=== PATIENT | male | born 1950 | race Caucasian/White ===

== ENCOUNTER → 2018-09-25 10:46 | Emergency (ER) | payer MEDICARE ==
[2018-09-25 12:20] LABS: ABS Lymphocytes 0.9 10^3/ul (1.0-4.8); ABS Monocytes 0.7 10^3/ul (0-0.8); ABS Neutrophils 4.6 10^3/ul (1.5-7.7); Eosinophil % 0.2 %; Hematocrit 46 % (42-52); Hemoglobin 15.6 g/dL (14.0-18.0); Lymphocyte % 14.5 %; Mean Corpuscular HGB Conc 34 g/dL (31-36); Mean Corpuscular Hemoglobin 32 pg (27-31); Mean Corpuscular Volume 94 fL (80-94); Nucleated Red Blood Cells % 0.1; Platelet Count 203 10^3/uL (150-450); Red Cell Distribution Width 14 % (10-15); White Blood Count 6.2 10^3/uL (3.5-10.8)
--- NOTE | 2018-09-25 12:24 | ED ---
Abdominal Pain/Male - HPI Summary HPI Summary: Pt is a 63 y/o M presenting to the ED with a chief complaint of abd pain onset initially at 2200 on 09/24/18 on the R side that lasted until 0500 this morning. He experienced some nausea that has since resolved, and the pain was causing him to feel restless. He denies diarrhea or fever. - History of Current Complaint Chief Complaint: EDAbdPain Stated Complaint: LOWER RT QUADRANT PAIN PER PT Time Seen by Provider: 09/25/18 12:10 Hx Obtained From: Patient Onset/Duration: Sudden Onset, Lasting Hours, Still Present Timing: Constant, Lasting Hours Severity Initially: Moderate Severity Currently: Mild Pain Intensity: 3 Pain Scale Used: 0-10 Numeric Location: Discrete At: RUQ, Discrete At: RLQ Radiates: No Aggravating Factor(s): Nothing Alleviating Factor(s): Spontaneous Resolution Associated Signs And Symptoms: Positive: Nausea. Negative: Fever, Diarrhea - Allergies/Home Medications Allergies/Adverse Reactions: Allergies Allergy/AdvReac Type Severity Reaction Status Date / Time No Known Allergies Allergy Verified 09/25/18 10:55 Home Medications: Home Medications Citalopram TAB* [CeleXA TAB*] 20 mg PO DAILY 09/25/18 [History Confirmed ] Cyanocobalamin INJ * [Vitamin B12 INJ *] 1,000 mcg IM MONTHLY 09/25/18 [History Confirmed 09/25/18] FLUoxetine CAP* [PROzac CAP*] 40 mg PO DAILY 09/25/18 [History Confirmed ] Gabapentin CAP(*) [Neurontin 100 mg CAP(*)] 100 - 300 mg PO QPM 09/25/18 [ History Confirmed 09/25/18] Metoprolol Tartrate TAB* [Lopressor TAB*] 12.5 mg PO DAILY 09/25/18 [History Confirmed 09/25/18] Ramipril CAP* [Altace CAP*] 10 mg PO DAILY 09/25/18 [History Confirmed 09/25/18] Rosuvastatin (NF) [Crestor (NF)] 40 mg PO DAILY 09/25/18 [History Confirmed ] Warfarin TAB(*) [Coumadin TAB(*)] 5 - 10 mg PO DAILY 09/25/18 [History Confirmed 09/25/18] PMH/Surg Hx/FS Hx/Imm Hx Previously Healthy: Yes Endocrine/Hematology History: Reports: Hx Anticoagulant Therapy Denies: Hx Diabetes, Hx Thyroid Disease Cardiovascular History: Reports: Hx Hypertension - CONTROLLED WITH DAILY MEDS Denies: Hx Congestive Heart Failure, Hx Deep Vein Thrombosis, Hx Myocardial Infarction, Hx Pacemaker/ICD Respiratory History: Reports: Hx Chronic Bronchitis, Hx Sleep Apnea - started CPAP 12/2012 Denies: Hx Asthma, Hx Chronic Obstructive Pulmonary Disease (COPD), Hx Lung Cancer, Hx Pneumonia, Hx Pulmonary Embolism GI History: Denies: Hx Gall Bladder Disease, Hx Gastrointestinal Bleed, Hx Ulcer, Hx Urosepsis History: Denies: Hx Kidney Stones, Hx Renal Disease Sensory History: Denies: Hx Contacts or Glasses, Hx Hearing Aid Opthamlomology History: Denies: Hx Contacts or Glasses Neurological History: Denies: Hx Dementia, Hx Migraine, Hx Seizures, Hx Transient Ischemic Attacks (TIA) Psychiatric History: Reports: Hx Depression - HAS TAKEN MEDS IN PAST, NONE CURRENTLY Denies: Hx Anxiety, Hx Schizophrenia, Hx Bipolar Disorder - Surgical History Surgery Procedure, Year, and Place: 1977 LEFT WRIST TENDON REPAIR [place]. 2005 DETACHED RETINA RT EYE [facility]. 2007 RT EYE LES IMPLANT [place]. 2011-R knee arthroscopy Hx Anesthesia Reactions: Yes - VERY NAUSEATED 4 DAYS 1977 Infectious Disease History: No Infectious Disease History: Denies: Traveled Outside the [place] in Last 30 Days - Family History Known Family History: Negative: Renal Disease, Blood Disorder - Social History Alcohol Use: Daily Alcohol Amount: 1/2 bottle wine Hx Substance Use: Yes Substance Use Type: Reports: Marijuana Hx Tobacco Use: No Smoking Status (MU): Never Smoked Tobacco Review of Systems Negative: Fever Positive: Abdominal Pain, Nausea. Negative: Diarrhea All Other Systems Reviewed And Are Negative: Yes Physical Exam - Summary Physical Exam Summary: Appearance: Well-appearing, Well-nourished, lying in bed comfortably Skin: Warm, dry, no obvious rash Eyes: sclera anicteric, no conjunctival pallor ENT: mucous membranes moist, pharynx appears normal Neck: Supple, nontender Respiratory: Clear to auscultation, no signs of respiratory distress Cardiovascular: Normal S1, S2. No murmurs. Normal distal pulses in tibial and radial bilaterally. Abdomen: Soft, nontender, normal active bowel sounds present Musculoskeletal: Normal, Strength/ROM Intact Neurological: A&Ox3, awake and alert, mentation is normal, speech is fluent and appropriate Psychiatric: affect is normal, does not appear anxious or depressed Triage Information Reviewed: Yes Vital Signs On Initial Exam: Initial Vitals Temp Pulse Resp BP Pulse Ox 97.7 F 76 14 162/88 96 09/25/18 10:53 09/25/18 10:53 09/25/18 10:53 09/25/18 10:53 09/25/18 10:53 Vital Signs Reviewed: Yes Diagnostics - Vital Signs Vital Signs Temp Pulse Resp BP Pulse Ox 09/25/18 10:53 97.7 F 76 14 162/88 96 - Laboratory Lab Results: Lab Results 09/25/18 Range/Units 11:56 WBC 6.2 (3.5-10.8) 10^3/uL RBC 4.90 (4.18-5.48) 10^6 /uL Hgb 15.6 (14.0-18.0) g/dL Hct 46 (42-52) % MCV 94 (80-94) fL MCH 32 H (27-31) pg MCHC 34 (31-36) g/dL RDW 14 (10-15) % Plt Count 203 (150-450) 10^3/uL MPV 7.0 L (7.4-10.4) fL Neut % (Auto) 74.1 % Lymph % (Auto) 14.5 % [place] % (Auto) 10.8 % Eos % (Auto) 0.2 % Baso % (Auto) 0.4 % Absolute Neuts (auto) 4.6 (1.5-7.7) 10^3/ul Absolute Lymphs (auto) 0.9 L (1.0-4.8) 10^3/ul Absolute Monos (auto) 0.7 (0-0.8) 10^3/ul Absolute Eos (auto) 0.0 (0-0.6) 10^3/ul Absolute Basos (auto) 0.0 (0-0.2) 10^3/ul Absolute Nucleated RBC 0.0 10^3/ul Nucleated RBC % 0.1 Result Diagrams: 09/25/18 11:56 09/25/18 11:56 Lab Statement: Any lab studies that have been ordered have been reviewed, and results considered in the medical decision making process. - CT CT abd/pelv CT Interpretation Completed By: Radiologist Summary of CT Findings: 1. NO EVIDENCE FOR ACUTE FINDING. 2. HEPATIC STEATOSIS. 3. ENLARGED PROSTATE GLAND AND BLADDER WALL THICKENING LIKELY DUE TO OUTLET OBSTRUCTION. ED physician has reviewed this report. - EKG 1155 Cardiac Rate: Bradycardia - 58bpm EKG Rhythm: Sinus Bradycardia ST Segment: Normal Ectopy: None Summary of EKG Findings: EKG at 1155 shows sinus bradycardia at 58 BPM, P waves , QRS complex, and T waves are within normal limits, T waves and intervals are normal, no ischemic changes. This is a normal EKG. Abdominal Pain Male Course/Dx - Course Course Of Treatment: Pt is a 63 y/o M presenting to the ED with a chief complaint of abd pain onset initially at 2200 on 09/24/18 on the R side that lasted until 0500 this morning. He experienced some nausea that has since resolved, and the pain was causing him to feel restless. He denies diarrhea or fever. Pt's physical exam is normal. CT abd/pelv shows: 1. NO EVIDENCE FOR ACUTE FINDING. 2. HEPATIC STEATOSIS. 3. ENLARGED PROSTATE GLAND AND BLADDER WALL THICKENING LIKELY DUE TO OUTLET OBSTRUCTION. EKG at 1155 shows sinus bradycardia at 58 BPM, P waves, QRS complex, and T waves are within normal limits, T waves and intervals are normal, no ischemic changes. This is a normal EKG. Pt will be d/c'ed with a dx of kidney stones. He is stable and agreeable with this plan. - Diagnoses Provider Diagnoses: Kidney stones Discharge - Sign-Out/Discharge Documenting (check all that apply): Patient Departure Patient Received Moderate/Deep Sedation with Procedure: No - Discharge Plan Condition: Good Disposition: HOME Patient Education Materials: Kidney Stones (ED), Acute Abdominal Pain (ED) Referrals: Keegan Diamond NP [Primary Care Provider] - - Billing Disposition and Condition Condition: GOOD Disposition: Home - Attestation Statements Document Initiated by Scribe: Yes Documenting Scribe: Savana Iqbal Provider For Whom [facility]aya is Documenting (Include Credential): Kris Pope MD. Scribe Attestation: Savana Chauhan, vandaed for Kris Pope MD. on 09/26/18 at 0949. Scribe Documentation Reviewed: Yes Provider Attestation: The documentation as recorded by the scribe, Savana Iqbal accurately reflects the service I personally performed and the decisions made by me, Kris Pope MD. Status of [facility]aya Document: Viewed
[2018-09-25 12:34] LABS: Urine Appearance Clear; Urine Bilirubin Negative (Negative); Urine Blood Negative (Negative); Urine Color Amber; Urine Glucose Negative (Negative); Urine Ketones Trace (Negative); Urine Nitrite Negative (Negative); Urine Protein Negative (Negative); Urine Specific Gravity 1.025 (1.010-1.030); Urine Urobilinogen Negative (Negative)
[2018-09-25 12:36] LABS: Albumin 4.7 g/dL (3.2-5.2); Albumin/Globulin Ratio 1.6 (1-3); BUN/Creatinine Ratio 17.3 (8-20); C Reactive Protein 10.77 mg/L (<8.01); EGFR African American 85.7 (>60); EGFR Non-African American 70.8 (>60); Potassium 4.2 mmol/L (3.5-5.0); Total Bilirubin 0.9 mg/dL (0.2-1.0); Total Protein 7.7 g/dL (6.4-8.9)
[2018-09-25 13:53] VITALS: BP 142/75
== END | disposition home or self-care (01) ==
LOC: ED 10:46
DX: N20.0 Calculus of kidney (principal); I10 Essential (primary) hypertension; Z79.01 Long term (current) use of anticoagulants; Z79.899 Other long term (current) drug therapy; K76.0 Fatty (change of) liver, not elsewhere classified; N40.0 Benign prostatic hyperplasia without lower urinary tract symptoms
CPT/HCPCS: 36415; 74176; 80053; 81003; 83605; 83690; 85025; 86140; 93005; 99283